=== PATIENT | female | born 1955 | race Caucasian/White ===

== ENCOUNTER 2023-02-17 23:05 | Inpatient (IN) ==
[2023-02-17 23:43] LABS: ABS Eosinophils 0.1 10^3/uL (0.0-0.5); ABS Monocytes 0.5 10^3/uL (0.0-0.9); ABS Neutrophils 6.2 10^3/uL (1.5-7.6); Eosinophil % 1.1 %; Hematocrit 40.8 % (35-45); Hemoglobin 13.8 g/dL (11.5-14.3); Lymphocyte % 22.2 %; Mean Corpuscular Hemoglobin 28.1 pg (27-33); Mean Corpuscular Hgb Conc 33.7 g/dL (31-36); Mean Corpuscular Volume 83.3 fL (80-97); Mean Platelet Volume 7.6 fL (7.5-11.2); Platelet Count 278 10^3/uL (150-450); Red Cell Distribution Width 13.1 % (12-17); White Blood Count 8.8 10^3/uL (3.8-11.8)
[2023-02-17] MEDS ORDERED: Nitroglycerin 0.3 mg TAB SL ONE (23:48)
[2023-02-18] LABS: Albumin/Globulin Ratio 1.3 (1-3); Calcium 9.4 mg/dL (8.6-10.3); Creatinine, Serum 0.8 mg/dL (0.51-0.95); Globulin 3.1 g/dL (2-4); Total Bilirubin 0.4 mg/dL (0.2-1.0); Total Protein 7.1 g/dL (6.4-8.9); eGFR CKD-EPI 79.7 (>60)
[2023-02-18 00:08] LABS: INR 0.92 (0.83-1.13)
[2023-02-18 00:51] LABS: High Sensitivity Troponin 1 Hr 221 pg/mL (<15)
[2023-02-18] MEDS: Heparin 5000 UNITS/ML 1 mL VIAL IV SCH ×3 (01:18→22:35)
[2023-02-18 01:20] LABS: Activated Partial Thrombo Time 31.3 seconds (26.0-38.0)
[2023-02-18] MEDS: Heparin DRIP 25,000 UNITS BAG 25,000 UNITS/500 ML BAG IV SCH ×2 (01:20→22:38)
[2023-02-18] MEDS ORDERED: Senna TAB 8.6 mg TAB PO PRN (01:29)
[2023-02-18] MEDS ORDERED: Dextrose 50% Syringe 50 ml 25 GM/50 ML SYRINGE IV PUSH PRN (01:49)
[2023-02-18 02:10] LABS: HDL Cholesterol 45.9 mg/dL; Magnesium 1.8 mg/dL (1.9-2.7)
[2023-02-18] MEDS ORDERED: Magnesium Sulfate 2 gm BAG 2 GM/50 ML BAG IVPB ONE (05:05)
[2023-02-18] MEDS ORDERED: Acetaminophen IV 1 GM/100ML 1,000 MG/100 ML BAG IV PRN (05:08)
[2023-02-18] MEDS: Potassium Chlor 20 meq TAB.ER PO SCH ×2 (05:45→10:24)
[2023-02-18 07:53] LABS: ABS Eosinophils 0.1 10^3/uL (0.0-0.5); ABS Lymphocytes 2.6 10^3/uL (1.0-4.8); ABS Monocytes 0.7 10^3/uL (0.0-0.9); ABS Neutrophils 5.3 10^3/uL (1.5-7.6); Eosinophil % 1.2 %; Hematocrit 38.9 % (35-45); Hemoglobin 13.4 g/dL (11.5-14.3); Lymphocyte % 29.6 %; Mean Corpuscular Hemoglobin 28.6 pg (27-33); Mean Corpuscular Hgb Conc 34.4 g/dL (31-36); Mean Corpuscular Volume 83.1 fL (80-97); Mean Platelet Volume 7.8 fL (7.5-11.2); Platelet Count 260 10^3/uL (150-450); Red Blood Count 4.68 10^6/uL (3.63-4.92); Red Cell Distribution Width 13.1 % (12-17); White Blood Count 8.8 10^3/uL (3.8-11.8)
[2023-02-18 07:54] LABS: Creatinine, Serum 0.6 mg/dL (0.51-0.95); eGFR CKD-EPI 97.1 (>60)
[2023-02-18] MEDS ORDERED: Sulfur Hexaflouride MICROSPHR 25 MG VIAL ONE (08:01)
[2023-02-18] MEDS: Polyethylene Glycol 3350 17 GM PACKET PO SCH (09:28)
[2023-02-18] MEDS ORDERED: Midazolam 10 mg/10 ml VIAL 1 mg/ml 10 ml VIAL (10 mg) IV SLOW PU ONE (10:22)
[2023-02-18] MEDS ORDERED: fentaNYL 100 mcg/2 ml 50 MCG/ML VIAL IV SLOW PU ONE (10:22)
[2023-02-18] MEDS ORDERED: NS 0.9% 1000 ml BAG 1,000 ML IV SCH ×3 (10:30→23:59)
[2023-02-18 10:59] LABS: ABS Basophils 0.1 10^3/uL (0.0-0.1); ABS Eosinophils 0.1 10^3/uL (0.0-0.5); ABS Lymphocytes 2.6 10^3/uL (1.0-4.8); ABS Monocytes 0.6 10^3/uL (0.0-0.9); ABS Neutrophils 4.9 10^3/uL (1.5-7.6); ABS Nucleated RBC 0.01 10^3/ul; Eosinophil % 1.2 %; Hematocrit 38.5 % (35-45); Hemoglobin 13.2 g/dL (11.5-14.3); Lymphocyte % 31.2 %; Mean Corpuscular Hemoglobin 28.3 pg (27-33); Mean Corpuscular Hgb Conc 34.3 g/dL (31-36); Mean Corpuscular Volume 82.5 fL (80-97); Mean Platelet Volume 8.3 fL (7.5-11.2); Nucleated Red Blood Cells % 0.1 /100 WBC (0.0-0.4); Platelet Count 280 10^3/uL (150-450); Red Blood Count 4.66 10^6/uL (3.63-4.92); Red Cell Distribution Width 13.3 % (12-17); White Blood Count 8.3 10^3/uL (3.8-11.8)
[2023-02-18 11:04] LABS: Activated Partial Thrombo Time 66.8 seconds (26.0-38.0); INR 0.98 (0.83-1.13)
[2023-02-18 11:50] LABS: Calcium 8.9 mg/dL (8.6-10.3); Creatinine, Serum 0.52 mg/dL (0.51-0.95); Potassium 4.2 mmol/L (3.5-5.0); eGFR CKD-EPI 100.5 (>60)
[2023-02-18] MEDS ORDERED: Midazolam 5 mg/5 ml VIAL 1 mg/ml 5 ml VIAL (5 mg) ONE ×2 (14:17→15:13)
[2023-02-18] MEDS ORDERED: fentaNYL 100 mcg/2 ml 50 MCG/ML VIAL ONE ×2 (14:17→15:05)
[2023-02-18] MEDS ORDERED: VERAPAMIL 2.5 MG/ML 2 ML VIAL ** 5 mg/2 ml ONE (14:17)
[2023-02-18] MEDS ORDERED: Heparin 2 UNITS/ML 1000 mls 2,000 ML IV ONE (14:17)
[2023-02-18] MEDS ORDERED: Heparin 1,000 UNIT/ML 10 ml (10,000 UNITS) CATHLAB/DIALYSIS ONE (14:17)
[2023-02-18] MEDS ORDERED: nitroGLYCERIN DRIP 25,000 MCG/250 ML BTL ONE (14:18)
[2023-02-18] MEDS ORDERED: Iohexol 350 (CONTRAST) 200 ML MDV IV ONE (14:18)
[2023-02-18] MEDS ORDERED: Lidocaine 1% MPF 5 ML VIAL ONE (14:22)
[2023-02-18] MEDS ORDERED: Heparin 2 UNITS/ML 1000 mls 1,000 ML IV ONE (14:54)
[2023-02-18] MEDS ORDERED: HYDROmorphone 1 MG/1 ML SYRINGE ONE (15:24)
[2023-02-18] MEDS ORDERED: Prasugrel 10 mg TAB (NF) PO ONE ×2 (16:44→17:30)
[2023-02-18 17:47] LABS: Calcium 8.8 mg/dL (8.6-10.3); Creatinine, Serum 0.58 mg/dL (0.51-0.95); Potassium 4.4 mmol/L (3.5-5.0); eGFR CKD-EPI 97.9 (>60)
[2023-02-19 05:48] LABS: Calcium 9.1 mg/dL (8.6-10.3); Creatinine, Serum 0.51 mg/dL (0.51-0.95); Magnesium 1.8 mg/dL (1.9-2.7); Potassium 4.5 mmol/L (3.5-5.0)
[2023-02-19] MEDS ORDERED: Magnesium Sulfate 2 gm BAG 2 GM/50 ML BAG IVPB ONE ×2 (05:56→07:15)
[2023-02-19] MEDS: Polyethylene Glycol 3350 17 GM PACKET PO SCH (08:06)
[2023-02-19] MEDS: CMCS:Prasugrel 10 mg TAB (NF) PO SCH (08:08)
[2023-02-19] MEDS ORDERED: Acetaminophen IV 1 GM/100ML 1,000 MG/100 ML BAG IV PRN (11:22)
[2023-02-19] MEDS ORDERED: Midazolam 2 mg/2 ml VIAL 1 mg/ml 2 ml VIAL (2 mg) ONE (12:07)
[2023-02-19] MEDS ORDERED: Propofol 10 MG/ML 20 ML BTL ONE (12:08)
[2023-02-19] MEDS ORDERED: Ondansetron 4 mg VIAL 2 MG/ML 2 ml VIAL ONE (12:08)
[2023-02-19] MEDS ORDERED: fentaNYL 250 mcg/5 ml 50 MCG/ML 5 ml VIAL (250 MCG) ONE ×2 (12:08→13:46)
[2023-02-19] MEDS ORDERED: Lidocaine 2% PF 5 ML VIAL ONE (12:08)
[2023-02-19] MEDS ORDERED: Ketamine HCL 50 mg/ml 10 ml VIAL (500 MG) ONE ×2 (12:08→19:03)
[2023-02-19] MEDS ORDERED: Heparin 2 UNITS/ML 1000 mls 3,000 ML IV ONE (12:37)
[2023-02-19] MEDS ORDERED: Lidocaine 1% MPF 5 ML VIAL ONE (12:37)
[2023-02-19] MEDS ORDERED: Iohexol 350 (CONTRAST) 200 ML MDV IV ONE (12:37)
[2023-02-19] MEDS ORDERED: niCARdipine 0.1MG/ML IVPREMIX 20 MG/200 ML BAG IV ONE (12:45)
[2023-02-19] MEDS ORDERED: Heparin 1,000 UNIT/ML 10 ml (10,000 UNITS) CATHLAB/DIALYSIS ONE ×2 (12:45→13:27)
[2023-02-19] MEDS ORDERED: nitroGLYCERIN DRIP 25,000 MCG/250 ML BTL ONE (12:48)
[2023-02-19] MEDS ORDERED: Heparin 2 UNITS/ML 1000 mls 1,000 ML IV ONE (13:10)
[2023-02-19] MEDS ORDERED: Morphine 2 MG/ML SYRINGE ONE ×2 (14:51→14:55)
[2023-02-19] MEDS ORDERED: Morphine 4 MG/ML VIAL (1 ml) IV ONE (14:54)
[2023-02-19] MEDS ORDERED: Morphine 4 MG/ML VIAL (1 ml) IV PRN (15:02)
[2023-02-19] MEDS ORDERED: Morphine 2 MG/ML SYRINGE IV PRN (15:04)
[2023-02-19] MEDS ORDERED: Lorazepam PYXIS KEY PRN (15:17)
[2023-02-19] MEDS ORDERED: LORazepam 2 mg VIAL 1 ml ONE (15:17)
[2023-02-19] MEDS ORDERED: LORazepam 2 mg VIAL 1 ml IV PUSH ONE (15:17)
[2023-02-19] MEDS: NS 0.9% 1000 ml BAG 1,000 ML IV ONE ×2 (15:50→16:54)
[2023-02-19] MEDS ORDERED: Naloxone 0.4 mg VIAL 0.4 mg/ml 1 ml VIAL IV PUSH ONE ×3 (16:07→17:49)
[2023-02-19] MEDS ORDERED: Atropine 1 MG/ML INJ 1 ML VIAL IV PUSH ONE (16:07)
[2023-02-19] MEDS ORDERED: Haloperidol 5 mg/ml SDV IV/IM 5 MG/ML AMP IV SLOW PU PRN (16:09)
[2023-02-19] MEDS ORDERED: NS 0.9% 1000 ml BAG 1,000 ML IV ONE (16:50)
[2023-02-19] MEDS ORDERED: Iodixanol (CONTRAST) 320 MG/ML 100 ML SDV IV ONE (18:45)
[2023-02-19] MEDS ORDERED: Norepinephrine 16MCG/ML BAGD5W 4,000 MCG/250 ML BAG IV ONE (18:57)
[2023-02-19] MEDS: Norepinephrine 16MCG/ML BAGD5W 4,000 MCG/250 ML BAG IV SCH ×2 (19:00→22:30)
[2023-02-19] MEDS ORDERED: Ketamine HCL 50 mg/ml 10 ml VIAL (500 MG) IV ONE (19:02)
[2023-02-19 19:42] LABS: ABS Basophils 0.1 10^3/uL (0.0-0.1); ABS Eosinophils 0.1 10^3/uL (0.0-0.5); ABS Monocytes 1.2 10^3/uL (0.0-0.9); ABS Neutrophils 12.8 10^3/uL (1.5-7.6); ABS Nucleated RBC 0.01 10^3/ul; Eosinophil % 0.5 %; Hematocrit 32.2 % (35-45); Lymphocyte % 17.4 %; Mean Corpuscular Hemoglobin 28.5 pg (27-33); Mean Corpuscular Volume 83.7 fL (80-97); Platelet Count 320 10^3/uL (150-450); Red Blood Count 3.85 10^6/uL (3.63-4.92); Red Cell Distribution Width 13.1 % (12-17); White Blood Count 17.2 10^3/uL (3.8-11.8)
[2023-02-19 19:46] LABS: Activated Partial Thrombo Time 30.3 seconds (26.0-38.0); INR 1.03 (0.83-1.13)
[2023-02-19 20:06] LABS: Calcium 7.9 mg/dL (8.6-10.3); Creatinine, Serum 0.51 mg/dL (0.51-0.95); Potassium 4.3 mmol/L (3.5-5.0)
[2023-02-19] MEDS ORDERED: Lidocaine 1% w EPI 1:100,000 MDV 20 ML VIAL INJ ONE (20:47)
[2023-02-19] MEDS ORDERED: Lidocaine 1% w EPI 1:100,000 MDV 20 ML VIAL ONE (21:00)
[2023-02-19] MEDS ORDERED: fentaNYL 100 mcg/2 ml 50 MCG/ML VIAL IV SLOW PU PRN (21:49)
[2023-02-19] MEDS ORDERED: fentaNYL 100 mcg/2 ml 50 MCG/ML VIAL ONE (23:44)
[2023-02-19] MEDS ORDERED: fentaNYL 100 mcg/2 ml 50 MCG/ML VIAL IV SLOW PU ONE (23:45)
[2023-02-20] MEDS: Norepinephrine 16MCG/ML BAGD5W 4,000 MCG/250 ML BAG IV SCH ×2 (00:34→02:38)
[2023-02-20 01:23] LABS: Glucose Confirmatory 477 mg/dL (70-100)
[2023-02-20] MEDS: Norepinephrine *QUAD STRENGTH* 16 mg/250 mL NS (ICU ONLY) IV SCH ×2 (04:10→11:42)
[2023-02-20 05:38] LABS: Hematocrit 39.2 % (35-45); Hemoglobin 13.2 g/dL (11.5-14.3); Mean Corpuscular Hemoglobin 28.3 pg (27-33); Mean Corpuscular Hgb Conc 33.6 g/dL (31-36); Mean Corpuscular Volume 84.2 fL (80-97); Platelet Count 297 10^3/uL (150-450); Red Blood Count 4.66 10^6/uL (3.63-4.92); Red Cell Distribution Width 13.5 % (12-17); White Blood Count 22.5 10^3/uL (3.8-11.8)
[2023-02-20 05:56] LABS: Calcium 8.3 mg/dL (8.6-10.3); Creatinine, Serum 0.67 mg/dL (0.51-0.95); Magnesium 1.7 mg/dL (1.9-2.7); Potassium 4.4 mmol/L (3.5-5.0); eGFR CKD-EPI 94.6 (>60)
[2023-02-20] MEDS ORDERED: Magnesium Sulfate 2 gm BAG 2 GM/50 ML BAG IVPB ONE (06:44)
[2023-02-20] MEDS ORDERED: Dextrose 50% Syringe 50 ml 25 GM/50 ML SYRINGE IV PUSH PRN (08:34)
[2023-02-20 08:36] LABS: ABS Basophils 0.1 10^3/uL (0.0-0.1); ABS Monocytes 1.7 10^3/uL (0.0-0.9); ABS Neutrophils 18.8 10^3/uL (1.5-7.6); ABS Nucleated RBC 0.01 10^3/ul; Lymphocyte % 8.8 %; Nucleated Red Blood Cells % 0.1 /100 WBC (0.0-0.4)
[2023-02-20] MEDS ORDERED: Insulin NPH 100 units/ml SUBCUT ONE (08:37)
[2023-02-20] MEDS ORDERED: Dextrose 50% Syringe 50 ml 25 GM/50 ML SYRINGE IV PUSH ONE (08:45)
[2023-02-20] MEDS ORDERED: Ondansetron 4 mg VIAL 2 MG/ML 2 ml VIAL IV ONE (09:40)
[2023-02-20] MEDS ORDERED: Calcium Carb (TUMS) 500 mg CHEW TAB PO PRN (09:41)
[2023-02-20] MEDS ORDERED: Ondansetron 4 mg VIAL 2 MG/ML 2 ml VIAL IV PRN (09:41)
[2023-02-20] MEDS ORDERED: Ondansetron 4 mg VIAL 2 MG/ML 2 ml VIAL ONE (09:41)
[2023-02-20] MEDS: CMCS:Prasugrel 10 mg TAB (NF) PO SCH (11:36)
[2023-02-20] MEDS: Polyethylene Glycol 3350 17 GM PACKET PO SCH (11:38)
[2023-02-20] MEDS: Insulin GLARGINE 100 un/ml 10 ml VIAL SUBCUT SCH (23:34)
[2023-02-21 05:34] LABS: ABS Basophils 0.1 10^3/uL (0.0-0.1); ABS Eosinophils 0.1 10^3/uL (0.0-0.5); ABS Monocytes 1.1 10^3/uL (0.0-0.9); ABS Neutrophils 7.3 10^3/uL (1.5-7.6); Eosinophil % 0.7 %; Hematocrit 30.8 % (35-45); Hemoglobin 10.8 g/dL (11.5-14.3); Lymphocyte % 19.3 %; Mean Corpuscular Hemoglobin 29.1 pg (27-33); Mean Corpuscular Hgb Conc 34.9 g/dL (31-36); Mean Corpuscular Volume 83.2 fL (80-97); Mean Platelet Volume 7.3 fL (7.5-11.2); Platelet Count 201 10^3/uL (150-450); Red Cell Distribution Width 13.9 % (12-17); White Blood Count 10.6 10^3/uL (3.8-11.8)
[2023-02-21 05:38] LABS: Urine Appearance Cloudy; Urine Bilirubin Negative (Negative); Urine Blood 1+ (Negative); Urine Color Yellow; Urine Glucose 3+(>=500 mg/dL) (Negative); Urine Ketones 1+ (Negative); Urine Nitrite Negative (Negative); Urine Protein Negative (Negative); Urine Specific Gravity 1.024 (1.002-1.030); Urine Urobilinogen Negative (Negative)
[2023-02-21 05:47] LABS: Urine Bacteria Absent (Absent); Urine Red Blood Cell Trace(0-2/hpf) (Absent); Urine Squamous Epithelial Cell Present (Absent); Urine White Blood Cell Trace(0-5/hpf) (Absent)
[2023-02-21 05:50] LABS: Calcium 8.2 mg/dL (8.6-10.3); Creatinine, Serum 0.49 mg/dL (0.51-0.95); Magnesium 1.7 mg/dL (1.9-2.7)
[2023-02-21] MEDS ORDERED: Norepinephrine *QUAD STRENGTH* 16 mg/250 mL NS (ICU ONLY) IV SCH (06:40)
[2023-02-21] MEDS ORDERED: Magnesium Sulfate 2 gm BAG 2 GM/50 ML BAG IVPB ONE ×2 (06:41→07:16)
[2023-02-21] MEDS: CMCS:Prasugrel 10 mg TAB (NF) PO SCH (08:13)
[2023-02-21] MEDS: Polyethylene Glycol 3350 17 GM PACKET PO SCH (08:20)
[2023-02-21] MEDS ORDERED: Dextrose 50% Syringe 50 ml 25 GM/50 ML SYRINGE IV PUSH PRN (09:17)
[2023-02-21] MEDS: Enoxaparin 40 MG/0.4 ML SYR SUBCUT SCH (10:44)
[2023-02-21] MEDS: Insulin GLARGINE 100 un/ml 10 ml VIAL SUBCUT SCH (20:35)
[2023-02-22 05:43] LABS: ABS Eosinophils 0.1 10^3/uL (0.0-0.5); ABS Lymphocytes 1.8 10^3/uL (1.0-4.8); ABS Monocytes 0.8 10^3/uL (0.0-0.9); ABS Neutrophils 4.9 10^3/uL (1.5-7.6); Eosinophil % 1.5 %; Hematocrit 26.9 % (35-45); Hemoglobin 9.4 g/dL (11.5-14.3); Lymphocyte % 24.1 %; Mean Corpuscular Hemoglobin 29.2 pg (27-33); Mean Corpuscular Volume 83.3 fL (80-97); Mean Platelet Volume 7.7 fL (7.5-11.2); Nucleated Red Blood Cells % 0.1 /100 WBC (0.0-0.4); Platelet Count 170 10^3/uL (150-450); Red Blood Count 3.23 10^6/uL (3.63-4.92); Red Cell Distribution Width 13.8 % (12-17); White Blood Count 7.7 10^3/uL (3.8-11.8)
[2023-02-22 06:07] LABS: Calcium 7.8 mg/dL (8.6-10.3); Creatinine, Serum 0.5 mg/dL (0.51-0.95); Magnesium 1.7 mg/dL (1.9-2.7); eGFR CKD-EPI 101.5 (>60)
[2023-02-22] MEDS: Enoxaparin 40 MG/0.4 ML SYR SUBCUT SCH (08:14)
[2023-02-22] MEDS: Polyethylene Glycol 3350 17 GM PACKET PO SCH (08:15)
[2023-02-22] MEDS: CMCS:Prasugrel 10 mg TAB (NF) PO SCH (08:16)
[2023-02-22] MEDS: Magnesium Sulfate 2 gm BAG 2 GM/50 ML BAG IVPB ONE ×2 (08:17→11:08)
[2023-02-22 10:05] LABS: Hematocrit 26.6 % (35-45); Hemoglobin 9.3 g/dL (11.5-14.3); Mean Platelet Volume 7.3 fL (7.5-11.2); Platelet Count 185 10^3/uL (150-450); Red Blood Count 3.21 10^6/uL (3.63-4.92); Red Cell Distribution Width 13.6 % (12-17); White Blood Count 7.3 10^3/uL (3.8-11.8)
[2023-02-22 11:35] LABS: Ferritin 93.6 ng/mL (11-307)
[2023-02-22] MEDS: Insulin GLARGINE 100 un/ml 10 ml VIAL SUBCUT SCH (21:21)
[2023-02-23 06:07] LABS: ABS Eosinophils 0.1 10^3/uL (0.0-0.5); ABS Lymphocytes 1.5 10^3/uL (1.0-4.8); ABS Monocytes 0.7 10^3/uL (0.0-0.9); ABS Neutrophils 4.6 10^3/uL (1.5-7.6); Eosinophil % 1.7 %; Hemoglobin 9.3 g/dL (11.5-14.3); Lymphocyte % 22.1 %; Mean Corpuscular Hemoglobin 28.6 pg (27-33); Mean Corpuscular Hgb Conc 34.5 g/dL (31-36); Mean Platelet Volume 7.5 fL (7.5-11.2); Platelet Count 199 10^3/uL (150-450); Red Blood Count 3.25 10^6/uL (3.63-4.92); Red Cell Distribution Width 13.3 % (12-17); White Blood Count 6.9 10^3/uL (3.8-11.8)
[2023-02-23 06:24] LABS: Calcium 8.2 mg/dL (8.6-10.3); Creatinine, Serum 0.48 mg/dL (0.51-0.95); Magnesium 1.7 mg/dL (1.9-2.7); Phosphorus 3.3 mg/dL (2.5-5.0); Potassium 3.8 mmol/L (3.5-5.0); eGFR CKD-EPI 102.5 (>60)
[2023-02-23] MEDS: CMCS:Prasugrel 10 mg TAB (NF) PO SCH (09:33)
[2023-02-23] MEDS: Enoxaparin 40 MG/0.4 ML SYR SUBCUT SCH (09:34)
[2023-02-23] MEDS: Polyethylene Glycol 3350 17 GM PACKET PO SCH (09:38)
[2023-02-23] MEDS: Insulin GLARGINE 100 un/ml 10 ml VIAL SUBCUT SCH (21:48)
[2023-02-24 06:55] LABS: Potassium 4.5 mmol/L (3.5-5.0)
[2023-02-24 06:59] LABS: Creatinine, Serum 0.5 mg/dL (0.51-0.95); eGFR CKD-EPI 101.5 (>60)
[2023-02-24 07:00] LABS: Calcium 8.1 mg/dL (8.6-10.3); Magnesium 1.7 mg/dL (1.9-2.7)
[2023-02-24] MEDS ORDERED: Magnesium Sulfate 2 gm BAG 2 GM/50 ML BAG IVPB ONE (08:05)
[2023-02-24] MEDS: Enoxaparin 40 MG/0.4 ML SYR SUBCUT SCH (08:30)
[2023-02-24] MEDS: Polyethylene Glycol 3350 17 GM PACKET PO SCH (08:36)
[2023-02-24] MEDS: CMCS:Prasugrel 10 mg TAB (NF) PO SCH (08:38)
[2023-02-24 11:00] VITALS: BP 111/53
== END 2023-02-24 13:40 | disposition home or self-care (01) | DRG 246 ==
LOC: ED 23:05 → SUATTDRO 02-18 01:29 → EDHOLD 02-18 01:29 → UNDODISIN 02-18 14:33 → CHICARD 02-18 14:36 → ICU 02-18 17:53 → SUATTDRO 02-18 17:53 → MEDTELE 02-21 18:52
PROVIDERS: ADMIT Hospitalist; ATTEND Internal Medicine

== ENCOUNTER 2023-10-29 07:50 | Inpatient (IN) ==
[~2023-10-29 07:50] MED LIST: Lactated Ringers 1000 ml BAG 1,000 ML IV SCH; NS 0.45% 1000 ml BAG 1,000 ML IV SCH; Naloxone 0.4 mg VIAL 0.4 mg/ml 1 ml VIAL IV PRN
[2023-10-29] MEDS ORDERED: Tranexamic Acid 1 GM/100ML BAG 2,000 MG/200 ML BAG IV ONE (08:13)
[2023-10-29] MEDS ORDERED: ceFAZolin 2 GM PREMIX 2 GM/50 ML BAG ONE (08:14)
[2023-10-29] MEDS ORDERED: Lidocaine 2% PF 5 ML VIAL ONE (08:22)
[2023-10-29] MEDS ORDERED: Propofol 10 MG/ML 20 ML BTL ONE ×2 (08:22→09:16)
[2023-10-29] MEDS ORDERED: Midazolam 2 mg/2 ml VIAL 1 mg/ml 2 ml VIAL (2 mg) ONE ×2 (08:24→11:16)
[2023-10-29 08:40] LABS: Rapid COVID-19 Molecular Undetected (Undetected)
[2023-10-29] MEDS ORDERED: fentaNYL 100 mcg/2 ml 50 MCG/ML VIAL ONE ×2 (09:23→14:32)
[2023-10-29] MEDS ORDERED: ROPIVACAINE 5 MG/ML 30 ML BTL (0.5%) ONE (10:22)
[2023-10-29] MEDS ORDERED: Rocuronium 50 mg VIAL 10 mg/ml 5 ml VIAL (50 mg) ONE (11:15)
[2023-10-29] MEDS ORDERED: fentaNYL 250 mcg/5 ml 50 MCG/ML 5 ml VIAL (250 MCG) ONE ×2 (11:15→11:57)
[2023-10-29] MEDS ORDERED: HYDROmorphone 0.5 MG/0.5 ML SYRINGE ONE (11:26)
[2023-10-29] MEDS ORDERED: KETAMINE HCL 10 MG/ML 20 ml VIAL (200 MG) ONE (11:26)
[2023-10-29] MEDS ORDERED: Esmolol 10 MG/ML 10 ML (100 mg) IV ONE (11:42)
[2023-10-29] MEDS ORDERED: Ondansetron 4 mg VIAL 2 MG/ML 2 ml VIAL ONE ×3 (12:06→15:18)
[2023-10-29] MEDS ORDERED: Dexamethasone IV 4 MG/ML VIAL 1 ml VIAL ONE ×2 (12:06→15:18)
[2023-10-29] MEDS ORDERED: Ondansetron ODT 4 mg TAB 4 MG TAB PO PRN (12:20)
[2023-10-29] MEDS ORDERED: Magnesium Hydroxide LIQ 30 ML UDC PO PRN (12:20)
[2023-10-29] MEDS ORDERED: Morphine 2 MG/ML SYRINGE IV PRN (12:20)
[2023-10-29] MEDS ORDERED: Lactulose 30 ml UDC PO PRN (12:20)
[2023-10-29] MEDS ORDERED: Ondansetron 4 mg VIAL 2 MG/ML 2 ml VIAL IV PRN (12:20)
[2023-10-29] MEDS ORDERED: Acetaminophen IV 1 GM/100ML 1,000 MG/100 ML BAG IV ONE (12:46)
[2023-10-29] MEDS: Ondansetron 4 mg VIAL 2 MG/ML 2 ml VIAL IV PRN (14:12)
[2023-10-29] MEDS: fentaNYL 100 mcg/2 ml 50 MCG/ML VIAL IV PRN (14:35)
[2023-10-29] MEDS: Acetaminophen IV 1 GM/100ML 1,000 MG/100 ML BAG IV ONE (16:57)
[2023-10-29] MEDS: Buffered Lidocaine 1% SYRIN 1 ml INTRADERM ONE (16:58)
[2023-10-29] MEDS: Lactated Ringers 1000 ml BAG 1,000 ML IV SCH (17:04)
[2023-10-29] MEDS: ceFAZolin 1 GM ADVAN 1 GM in NS 0.9% 50 ML 50 ML IVPB SCH (20:06)
[2023-10-29] MEDS: Magnesium Hydroxide LIQ 30 ML UDC PO SCH (20:10)
[2023-10-30 05:27] LABS: Hematocrit 31.2 % (35-45); Hemoglobin 10.7 g/dL (11.5-14.3); Mean Platelet Volume 7.1 fL (7.5-11.2); Platelet Count 252 10^3/uL (150-450)
[2023-10-30 06:56] LABS: Calcium 8.5 mg/dL (8.6-10.3); Creatinine, Serum 0.75 mg/dL (0.51-0.95); Potassium 4.5 mmol/L (3.5-5.0); eGFR CKD-EPI 85.6 (>60)
[2023-10-30] MEDS: CMCS: Prasugrel 10 mg TAB (NF) PO SCH (09:31)
[2023-10-30] MEDS: Vitamin THERAPEUTIC TAB PO SCH (09:31)
[2023-10-30 10:32] VITALS: BP 98/46
== END 2023-10-30 18:15 | disposition home or self-care (01) | DRG 470 ==
LOC: INTOOBSV 07:50 → OBSVTOIN 07:50 → AA 07:50 → SSU 12:20
PROVIDERS: ADMIT Orthopaedic Surgery Adult Reconstructive Orthopaedic Surgery; ATTEND Orthopaedic Surgery Adult Reconstructive Orthopaedic Surgery